=== PATIENT | male | born 2005 | race Caucasian/White ===

== ENCOUNTER 2024-01-22 22:03 | Emergency (ER) | payer OTHER ==
[~2024-01-22] VITALS: Ht 182.9 cm; Wt 91.6 kg
[2024-01-22] MEDS: KETOROLAC 30 MG/ML 1ML VIAL IV ONE (22:47)
[2024-01-22] MEDS: NS 1,000 ML IV ONE (22:47)
[2024-01-22 22:49] LABS: BASO % 0.5 % (0.0-1.0); EOS # 0.2 10^3/uL (0.0-0.5); EOS % 2.6 % (0.0-3.0); HEMATOCRIT 42.5 % (42.0-52.0); LYMPH # 2.4 10^3/uL (1.5-5.0); LYMPH % 32.4 % (24.0-44.0); MEAN CORPUSCULAR HEMOGLOBIN 29.9 pg (27.0-33.0); MEAN CORPUSCULAR HGB CONC 35.3 g/dl (32.0-36.5); MEAN CORPUSCULAR VOLUME 84.7 fl (80.0-96.0); MONO # 0.6 10^3/uL (0.0-0.8); MONO % 8.3 % (2.0-8.0); NEUTROPHILS # 4.1 10^3/uL (1.5-8.5); NEUTROPHILS % 55.8 % (36.0-66.0); PLATELET COUNT, AUTOMATED 192 10^3/uL (150-450); RED BLOOD COUNT 5.02 10^6/uL (4.30-6.10); WHITE BLOOD COUNT 7.3 10^3/uL (4.0-10.0)
[2024-01-22 23:16] LABS: CK-MB VALUE MASS < 1.0 NG/ML (<3.6)
[2024-01-22 23:17] LABS: BLOOD UREA NITROGEN 16 MG/DL (9-23); CALCIUM LEVEL 9.1 MG/DL (8.5-10.1); CARBON DIOXIDE LEVEL 27 MMOL/L (20-31); CHLORIDE LEVEL 109 MMOL/L (98-107); CREATININE FOR GFR 1.16 MG/DL (0.70-1.30); GLUCOSE, FASTING 93 MG/DL (60-100); SODIUM LEVEL 143 MMOL/L (136-145)
[2024-01-22 23:18] LABS: CPK CREATINE PHOSPHOKINASE 657 U/L (46-171); MB/CK RELATIVE INDEX 0.15 (< OR =4)
[2024-01-22] MEDS ORDERED: ISOVUE-370 76% 100ML VIAL As Ordered ONE (23:22)
[2024-01-23] MEDS: FAMOTIDINE 20MG/2ML VIAL IVP ONE (00:22)
[2024-01-23 00:32] LABS: CK-MB VALUE MASS < 1.0 NG/ML (<3.6)
[2024-01-23 00:34] LABS: CPK CREATINE PHOSPHOKINASE 541 U/L (46-171); MB/CK RELATIVE INDEX 0.18 (< OR =4)
[2024-01-23] MEDS: diazePAM 10MG/2ML SYRINGE IV ONE (00:56)
[2024-01-23] MEDS ORDERED: CYCL-707 PO (01:07)
[2024-01-23 01:24] VITALS: BP 120/65; TEMP 98; O2SAT 98
== END 2024-01-23 01:27 | disposition home or self-care (01) ==
LOC: M ED 22:03
DX: R07.9 Chest pain, unspecified (principal); M94.0 Chondrocostal junction syndrome [Tietze]; I49.3 Ventricular premature depolarization; I45.10 Unspecified right bundle-branch block; I49.49 Other premature depolarization; F10.10 Alcohol abuse, uncomplicated; Z79.899 Other long term (current) drug therapy
CPT/HCPCS: 71045; 71275; 80048; 82550; 82553; 84484; 85025; 93005; 96374; 96375; 99284; J1885; J3360; Q9967; S0028

== ENCOUNTER → 2024-04-25 | Outpatient (CLI) | payer OTHER ==
[~2024-04-25] MED LIST: CYCL-707 PO
== END ==
LOC: M WHC 07:14
PROVIDERS: ATTEND Physician Assistant
DX: R07.1 Chest pain on breathing (principal); N62 Hypertrophy of breast
CPT/HCPCS: 77066; G0279

== ENCOUNTER → 2024-09-04 | Outpatient (CLI) | payer OTHER | LOC: M CARPUL 12:47 | PROVIDERS: ATTEND Nurse Practitioner Adult Health | DX: R06.02 Shortness of breath (principal) ==

== ENCOUNTER → 2024-09-11 | Outpatient (CLI) | payer OTHER ==
[~2024-09-11] MED LIST changes: +METHACHOLINE KIT (6 VIAL.NEB PREMIX) INH ONE
== END ==
LOC: M CARPUL 12:45
PROVIDERS: ATTEND Nurse Practitioner Adult Health
DX: R06.02 Shortness of breath (principal)

== ENCOUNTER → 2024-10-09 | Outpatient (CLI) | payer OTHER | LOC: M CARPUL 08:27 | PROVIDERS: ATTEND Nurse Practitioner Adult Health | DX: R06.02 Shortness of breath (principal) | CPT/HCPCS: 94070; J7674 ==

== ENCOUNTER 2025-08-13 11:08 | Emergency (ER) | payer OTHER ==
[~2025-08-13] VITALS: Ht 182.9 cm; Wt 72.4 kg
[~2025-08-13 11:08] MED LIST changes: -METHACHOLINE KIT (6 VIAL.NEB PREMIX) INH ONE
[2025-08-13] MEDS ORDERED: KETOROLAC 30 MG/ML 1 ML VIAL As Ordered ONE (12:30)
[2025-08-13] MEDS ORDERED: LIDOCAINE VISCOUS 2% SOLN 15 ML UDC As Ordered ONE (12:30)
[2025-08-13] MEDS ORDERED: ACETAMINOPHEN 1000MG/100ML IV BAG As Ordered ONE (12:30)
[2025-08-13] MEDS: KETOROLAC 30 MG/ML 1 ML VIAL IV ONE (12:40)
[2025-08-13] MEDS: ACETAMINOPHEN *IV* 1,000 MG in IV 1 EA IV ONE (12:40)
[2025-08-13] MEDS: LIDOCAINE VISCOUS 2% SOLN 15 ML UDC SS ONE (12:40)
[2025-08-13 13:00] LABS: BASO # 0.0 10^3/uL (0.0-0.2); BASO % 0.2 % (0.0-1.0); EOS # 0.1 10^3/uL (0.0-0.5); EOS % 0.9 % (0.0-3.0); LYMPH # 1.5 10^3/uL (1.5-5.0); LYMPH % 12.6 % (24.0-44.0); MONO # 1.1 10^3/uL (0.0-0.8); MONO % 9.0 % (2.0-8.0); NEUTROPHILS # 9.4 10^3/uL (1.5-8.5); NEUTROPHILS % 76.9 % (36.0-66.0); PLATELET COUNT, AUTOMATED 212 10^3/uL (150-450)
[2025-08-13 13:07] LABS: MONO SCRN NEGATIVE (NEGATIVE)
[2025-08-13 13:10] LABS: ALT/SGPT 18 U/L (7.0-40); AST/SGOT 13 U/L (<34); C REACTIVE PROTEIN QUANTITATIV 5.84 MG/DL (<1.0); CALCIUM LEVEL 9.6 MG/DL (8.5-10.1); CARBON DIOXIDE LEVEL 27 MMOL/L (20-31); CHLORIDE LEVEL 102 MMOL/L (98-107); CREATININE FOR GFR 1.06 MG/DL (0.70-1.30); GLOMERULAR FILTRATION RATE > 90.0 (>60); POTASSIUM SERUM 4.1 MMOL/L (3.5-5.1); SODIUM LEVEL 138 MMOL/L (136-145)
[2025-08-13] MEDS ORDERED: ISOVUE-370 76% 100 ML VIAL As Ordered ONE (13:22)
[2025-08-13] MEDS ORDERED: IBUP80TA PO (15:15)
== END 2025-08-13 15:33 | disposition home or self-care (01) ==
LOC: M ED 11:08
DX: J02.9 Acute pharyngitis, unspecified (principal); J06.9 Acute upper respiratory infection, unspecified; J45.909 Unspecified asthma, uncomplicated; Z88.0 Allergy status to penicillin
CPT/HCPCS: 70491; 80047; 80053; 83605; 85025; 85652; 86140; 86308; 87040; 87081; 87486; 87581; 87633; 87798; 99281; Q9967